=== PATIENT | male | born 1995 | race Two or more races ===

== ENCOUNTER 2023-09-09 06:07 | Day surgery (SDC) | payer OTHER ==
[~2023-09-09] VITALS: Ht 182.9 cm; Wt 79.5 kg
[2023-09-09] MEDS ORDERED: LR 1,000 ML IV SCH ×2 (06:35→08:35)
[2023-09-09] MEDS ORDERED: dexmedeTOMIDine (4MCG/ML)200MCG/50ML BTL (PRECEDEX) As Ordered ONE (07:02)
[2023-09-09] MEDS ORDERED: ONDANSETRON 4MG 2ML VIAL As Ordered ONE (07:02)
[2023-09-09] MEDS ORDERED: ACETAMINOPHEN 1000MG 100ML IV BAG As Ordered ONE (07:02)
[2023-09-09] MEDS ORDERED: propofoL 200 MG/20 ML VIAL As Ordered ONE (07:02)
[2023-09-09] MEDS ORDERED: LIDOCAINE 2% 100MG/5ML SDV (FOR ANES.) As Ordered ONE (07:02)
[2023-09-09] MEDS ORDERED: fentaNYL 100 MCG/2 ML INJECTION As Ordered ONE (07:03)
[2023-09-09] MEDS ORDERED: MIDAZOLAM INJ 2MG/2ML VIAL As Ordered ONE (07:05)
[2023-09-09] MEDS: BACITRACIN OINTMENT 30GM TUBE As Ordered ONE (07:13)
[2023-09-09] MEDS ORDERED: OXYC1TAB23 PO (07:34)
[2023-09-09] MEDS: ceFAZolin SOD 2 GM in IV 1 EA IV ONE (07:35)
[2023-09-09] MEDS: LIDOCAINE 1% SDV 30ML VIAL As Ordered ONE (07:56)
[2023-09-09] MEDS ORDERED: fentaNYL 100 MCG/2 ML INJECTION IV PRN (08:35)
[2023-09-09] MEDS ORDERED: ONDANSETRON 4MG 2ML VIAL IV PRN (08:35)
[2023-09-09] MEDS: oxyCODONE 5MG TAB PO PRN (09:24)
[2023-09-09] MEDS ORDERED: PERCOCET 5MG/325MG TAB PO PRN (09:25)
[2023-09-09 10:19] VITALS: BP 121/73; TEMP 98.1; O2SAT 98
== END 2023-09-09 10:32 | disposition home or self-care (01) ==
LOC: M SDC 06:07
PROVIDERS: ATTEND Urology
DX: N48.1 Balanitis (principal); Z30.2 Encounter for sterilization; F17.290 Nicotine dependence, other tobacco product, uncomplicated
CPT/HCPCS: 54161; 55250; 88302; 88304; J0131; J0665; J0690; J1100; J2250; J2405; J3010